=== PATIENT | female | born 1970 | race Caucasian/White ===

== ENCOUNTER 2023-05-20 05:47 | Emergency (ER) | payer BC ==
--- OUTSIDE RECORDS SUMMARY | 2023-05-20 05:49 | XMS REPORT | Continuity of Care Document ---
Author Name Unknown Address [address] [place] [address] 1 [address] [place], [place] [id number] [place] [address] thconnect Address [address] [place] [address] [address] [place] [address] Care Team Providers Care Door Puller Name Role Phone [email or web address] Attending Clinician Unavaila ble [email or web address] Admitting Clinician Unavaila ble Encounters Start Date/Time End Date/Time Encounter Type Admission Type Attending Clinicians Care Facility Care Department Encounter ID Source 2023-04-08 00:00:00 2023-04-08 00:00:00 Outpatient [email or web address] [facility] [id number] [facility]
[2023-05-20 06:44] LABS: Absolute Lymphocytes (CBC) 1.5 K/uL (0.7-4.9); Hematocrit 40.1 % (36.0-45.0); Lymphocytes % 26.5 % (15.3-44.8); MCV 88.1 fL (80-100); MPV 9.9 fL (7.6-11.3); Platelets 145 thou/uL (152-406); RBC Red Blood Cell Count 4.56 M/uL (3.86-4.86)
[2023-05-20 06:54] LABS: Albumin 3.4 g/dL (3.4-5.0); Bilirubin Direct 0.1 mg/dL (0-0.2); Bilirubin Indirect, Calculated 0.4 mg/dL (0.2-0.8); Bilirubin Total 0.5 mg/dL (0.2-1.0); Potassium 3.5 mEq/L (3.5-5.1); Protein, Total 7.5 g/dL (6.4-8.2); Troponin High Sensitivity 4.5 pg/mL (<58.9)
--- NOTE | 2023-05-20 07:32 | RAD REPORT ---
EXAM DESCRIPTION: CT - Angio Aorta For Dissection - 05/20/2023 7:09 am CLINICAL HISTORY: . Chest and abd pain COMPARISON: None TECHNIQUE: Computed tomography angiography of the chest, abdomen pelvis were obtained. 100 cc Isovue 370 was administered intravenously. Coronal and sagittal reconstruction were performed. MIP 3D reconstruction was performed All CT scans are performed using dose optimization technique as appropriate and may include automated exposure control or mA/KV adjustment according to patient size. FINDINGS: An aortic dissection is not seen. An aortic aneurysm is not displayed. The celiac, SMA and FERN are patent . A lung consolidation is not present. A pericardial effusion is not seen. A pleural effusion is not no delgado. Fatty liver. Small low-density area inferior right kidney extending to periphery There no evidence diverticulitis. Normal appendix. No adnexal mass IMPRESSION: Negative for an aortic dissection. Small low-density area right kidney may represent pyelonephritis
[2023-05-20 07:49] LABS: Thyroid Stimulating Hormone 1.26 uIU/mL (0.358-3.740)
--- NOTE | 2023-05-20 10:08 | EDPHYS ---
Physician Documentation [facility] Name: Erna Kumar Age: 52 yrs Sex: Female : 1970 Arrival Date: 05/20/2023 Time: 05:47 Bed 7 Private MD: ED Physician Kushal Sandhu HPI: 05/20 06:25 This 52 yrs old Female presents to ER via Ambulatory with complaints of Chest sp4 Tightness. 07:10 This 52 yrs old Female presents to ER via Ambulatory with complaints of Chest sp4 Tightness. 07:10 Patient is 52-year-old female with no significant past medical history presents with sp4 acute onset midsternal chest pain starting at 430 described as pressure with bilateral arm discomfort feeling of bilateral arm weakness, also feeling shortness of breath. Without cold sweats. Patient's pain at this time is 3 out of 10 on a scale. Patient states she exercises 3 times a day on a treadmill and does not get chest pains with physical exertion, patient smokes 7 cigarettes a day, not on any medications,. Historical: - Allergies: 06:03 PENICILLINS; jj7 - PMHx: 06:03 None; jj7 - PSHx: 06:03 BREAST LIFT; LIPOSUCTION; jj7 - Immunization history:: Adult Immunizations not up to date. - Social history:: Smoking status: Patient reports the use of cigarette tobacco products, Patient/guardian denies using alcohol, street drugs. - Family history:: not pertinent. - Hospitalizations: : No recent hospitalization is reported. ROS: 07:10 Constitutional: Negative for fever, chills, and weight loss, positive chest wall sp4 pain, positive chest pain positive bilateral arm discomfort 07:10 All other systems are negative, Exam: 07:10 Constitutional: This is a well developed, well nourished patient who is awake, alert, sp4 and in no acute distress. Head/Face: Normocephalic, atraumatic. Eyes: Pupils equal round and reactive to light, extra-ocular motions intact. Lids and lashes normal. Conjunctiva and sclera are not injected. Cornea within normal limits. Periorbital areas with no swelling, redness, or edema. ENT: Nares patent. No nasal discharge, no septal abnormalities noted. Tympanic membranes are normal and external auditory canals are clear. Oropharynx with no redness, swelling, or masses, exudates, or evidence of obstruction, uvula midline. Mucous membranes moist. Neck: Trachea midline, no thyromegaly or masses palpated, and no cervical lymphadenopathy. Supple, full range of motion without nuchal rigidity, or vertebral point tenderness. Chest/axilla: Normal chest wall appearance and motion. Nontender with no deformity. No lesions are appreciated. Cardiovascular: Regular rate and rhythm with a normal S1 and S2. No gallops, murmurs, or rubs. Normal PMI, no JVD. No pulse deficits. Respiratory: Lungs have equal breath sounds bilaterally, clear to auscultation and percussion. No rales, rhonchi or wheezes noted. No increased work of breathing, no retractions or nasal flaring. Abdomen/GI: Soft, non-tender, with normal bowel sounds. No distension or tympany. No guarding or rebound. No evidence of tenderness throughout. Back: No spinal tenderness. No costovertebral tenderness. Skin: Warm, dry with normal turgor. Normal color with no rashes, no lesions, and no evidence of cellulitis. MS/ Extremity: Pulses equal, no cyanosis. Neurovascular intact. Full, normal range of motion. Neuro: Awake and alert, GCS 15, oriented to person, place, time, and situation. Cranial nerves II-XII grossly intact. Motor strength 5/5 in all extremities. Sensory grossly intact. Psych: Awake, alert, with orientation to person, place and time. Behavior, mood, and affect are within normal limits 07:15 ECG was reviewed by the Attending Physician. EKG at 0 623 reveals normal sinus rhythm, sp4 no other significant findings and complete right bundle branch block Vital Signs: 06:01 BP 114 / 69; Pulse 74; Resp 16; Temp 97.9; Pulse Ox 98% ; Weight 78.02 kg; Height 5 ft. jj7 9 in. ; Pain 3/10; 08:19 BP 102 / 81; Pulse 65; Resp 18; Pulse Ox 97% on R/A; ld1 09:14 BP 100 / 70; Pulse 70; Resp 18; Pulse Ox 99% on R/A; ld1 06:01 Body Mass Index 25.40 (78.02 kg, 175.26 cm) [facility] 06:01 Pain Scale: Adult jj7 MDM: 06:25 Patient medically screened. sp4 07:10 ED course: Chest - CLINICAL HISTORY: The patient is 52 years old and is Female; CHEST sp4 PAIN TECHNIQUE: Frontal view of the chest. COMPARISON: No relevant prior studies available. FINDINGS: Lungs: Unremarkable. No consolidation. Pleural space: Unremarkable. No pneumothorax. Heart: Unremarkable. Mediastinum: Unremarkable. Normal mediastinal contour. Bones/joints: No acute findings. IMPRESSION: No acute findings in the chest. . 07:14 HEART Score: History: Moderately Suspicious (1), ECG: Normal (0), Age: > 45 and < 65 sp4 years (1), Risk Factors: No Risk Factors Known (0), Troponin: < or = 1 x Normal Limit (0), Total Score = 2. Data reviewed: vital signs, nurses notes, lab test result(s), EKG, radiologic studies, CT scan, plain films. Transition of care: After a detail discussion of the patient's case, care is transferred to Kushal Sandhu DO. ED course: Patient will get CT chest abdomen pelvis aortic protocol. At this time she is awaiting for chest CT. 07:42 Transition of care: Care assumed from Jeffry Gray MD. ms3 10:09 Independent interpretation of the following test(s) in the Emergency Department EKG: ms3 See my EKG interpretation above. Counseling: I had a detailed discussion with the patient and/or guardian regarding the historical points, exam findings, and any diagnostic results supporting the discharge/admit diagnosis, lab results, radiology results, the need for outpatient follow up, to return to the emergency department if symptoms worsen or persist or if there are any questions or concerns that arise at home. Special discussion: Based on the patient's history, exam, and Dx evaluation, there is no indication for emergent intervention or inpatient Tx. It is understood by the patient/guardian that if the Sx's persist or worsen they need to return immediately for re-evaluation. 05/20 06:14 Order name: Basic Metabolic Panel; Complete Time: 07:13 jb4 05/20 06:14 Order name: CBC with Diff; Complete Time: 07:13 jb4 12 06:14 Order name: Troponin HS; Complete Time: 07: jb4 05/20 06:25 Order name: LFT's sp4 05/20 06:29 Order name: Liver (Hepatic) Function; Complete Time: 07:13 EDND 05/20 07:13 Order name: TSH; Complete Time: 10: 4 05/20 07:13 Order name: T4 Free; Complete Time: 10: 4 05/20 06:14 Order name: XRAY Chest (1 view) [facility] 05/20 06:39 Order name: CT Aorta for Dissection; Complete Time: 10: [facility] 05/20 06:14 Order name: EKG; Complete Time: 06:14 [facility] 05/20 06:14 Order name: Cardiac monitoring; Complete Time: 06:20 [facility] 05/20 06:14 Order name: EKG - Nurse/Tech; Complete Time: 06:25 [facility] 05/20 06:14 Order name: IV Saline Lock; Complete Time: 06:21 [facility] 05/20 06:14 Order name: Labs collected and sent; Complete Time: 06:21 [facility] 05/20 06:14 Order name: O2 Per Protocol; Complete Time: 06:21 [facility] 05/20 06:14 Order name: O2 Sat Monitoring; Complete Time: 06:20 [facility] EC:15 Rate is 67 beats/min. Rhythm is regular, Normal Sinus Rhythm. QRS [place] is Normal. AR sp4 interval is normal. QRS interval is prolonged. QT interval is normal. No Q waves. T waves are Normal. No ST changes noted. Clinical impression: Normal ECG. Interpreted by me. Reviewed by me. Administered Medications: No medications were administered Disposition Summary: 05/20/23 10:07 Discharge Ordered Notes: Location: Home ms3 Condition: Stable ms3 Diagnosis - Chest pain, unspecified ms3 Followup: ms3 - With: Private Physician - When: 2 - 3 days - Reason: Recheck today's complaints Discharge Instructions: - Discharge Summary Sheet ms3 - Nonspecific Chest Pain, Adult ms3 Forms: - Medication Reconciliation Form ms3 - Thank You Letter ms3 - Antibiotic Education ms3 - Prescription Opioid Use ms3 - Patient Portal Instructions ms3 - Leadership Thank You Letter ms3 Signatures: Dispatcher [employer] Collin Werner RN RN jb4 Kushal Sandhu DO DO ms3 Jeff Engel RN RN jj7 Potepalov, Jeffry, MD MD sp4
--- NOTE | 2023-05-20 10:08 | ER ---
Nurse's Notes [facility] Name: Erna Kumar Age: 52 yrs Sex: Female : 1970 Arrival Date: 05/20/2023 Time: 05:47 Bed 7 Private MD: Diagnosis: Chest pain, unspecified Presentation: 05/20 06:01 Chief complaint: Patient states: WOKE UP HAVING CP AT 0430. ARMS FELT WEAK. NO LONGER jj7 HAVING PAIN BUT CHEST TIGHTNESS. Coronavirus screen: At this time, the client does not indicate any symptoms associated with coronavirus-19. Ebola Screen: No symptoms or risks identified at this time. Initial Sepsis Screen: Does the patient meet any 2 criteria? No. Patient's initial sepsis screen is negative. Does the patient have a suspected source of infection? No. Patient's initial sepsis screen is negative. Risk Assessment: Do you want to hurt yourself or someone else? Patient reports no desire to harm self or others. Onset of symptoms was May 20, 2023. 06:01 Method Of Arrival: Ambulatory [facility] 06:01 Acuity: ZULMA 3 jj7 Triage Assessment: 06:03 General: Appears in no apparent distress. uncomfortable, Behavior is calm, cooperative, jj7 appropriate for age. Pain: Denies pain. Cardiovascular: Reports CHEST TIGHTNESS. Historical: - Allergies: 06:03 PENICILLINS; jj7 - PMHx: 06:03 None; jj7 - PSHx: 06:03 BREAST LIFT; LIPOSUCTION; jj7 - Immunization history:: Adult Immunizations not up to date. - Social history:: Smoking status: Patient reports the use of cigarette tobacco products, Patient/guardian denies using alcohol, street drugs. - Family history:: not pertinent. - Hospitalizations: : No recent hospitalization is reported. Screenin:05 [facility] ED Fall Risk Assessment (Adult) History of falling in the last 3 months, jj7 including since admission No falls in past 3 months (0 pts). [facility] ED Fall Risk Assessment (Adult) Confusion or Disorientation No (0 pts) Intoxicated or Sedated No (0 pts) Impaired Gait No (0 pts) Mobility Assist Device Used No (0 pt) Altered Elimination No (0 pt) Score/Fall Risk Level 0 - 2 = Low Risk Oriented to surroundings, Maintained a safe environment, Educated pt \T\ family on fall prevention, incl call for assistance when getting out of bed. Abuse screen: Denies threats or abuse. Nutritional screening: No deficits noted. Tuberculosis screening: No symptoms or risk factors identified. Assessment: 06:05 Reassessment: SEE TRIAGE ASSESSMENT. Pain: Denies pain. Pain does not radiate. Pain jj7 began 3 hours ago. 07:00 Reassessment: No changes from previously documented assessment. Report received from ll1 special deputy sheriff RN. 08:43 Reassessment: No changes from previously documented assessment. Patient and/or family ll1 updated on plan of care and expected duration. Pain level reassessed. Patient is alert, oriented x 3, equal unlabored respirations, skin warm/dry/pink. 10:04 Reassessment: No changes from previously documented assessment. Patient and/or family ll1 updated on plan of care and expected duration. Pain level reassessed. Dr. Flowers at . Vital Signs: 06:01 BP 114 / 69; Pulse 74; Resp 16; Temp 97.9; Pulse Ox 98% ; Weight 78.02 kg; Height 5 ft. jj7 9 in. ; Pain 3/10; 08:19 BP 102 / 81; Pulse 65; Resp 18; Pulse Ox 97% on R/A; ld1 09:14 BP 100 / 70; Pulse 70; Resp 18; Pulse Ox 99% on R/A; ld1 06:01 Body Mass Index 25.40 (78.02 kg, 175.26 cm) jj7 06:01 Pain Scale: Adult jj7 ED Course: 05:51 Patient arrived in ED. gm2 06:03 Triage completed. jj7 06:03 Arm band placed on right wrist. Patient placed in an exam room, on a stretcher, on jj7 alarm security or surveillance monitor. 06:05 Patient has correct armband on for positive identification. Placed in gown. Bed in low jj7 position. Call light in reach. Adult w/ patient. Client placed on continuous cardiac and pulse oximetry monitoring. NIBP monitoring applied. monitor technician on. Pulse ox on. 06:21 Inserted saline lock: 18 gauge in right antecubital area, using aseptic technique. jj7 Blood collected. Patient maintains SpO2 saturation greater than 95% on room air. 06:25 Jeffry Gray MD is Attending Physician. sp4 06:31 XRAY Chest (1 view) In Process Unspecified. EDMS 07:10 Glenis Moreno, RN is Primary Nurse. ll1 07:11 CT Aorta for Dissection In Process Unspecified. EDMS 07:42 Attending Physician role handed off by Jeffry Gray MD ms3 07:42 Kushal Flowers DO is Attending Physician. ms3 10:12 No provider procedures requiring assistance completed. IV discontinued, intact, ld1 bleeding controlled, No redness/swelling at site. Administered Medications: No medications were administered Medication: 06:05 VIS not applicable for this client. jj7 Outcome: 10:07 Discharge ordered by MD. ms3 10:12 Discharged to home ambulatory, with family, ld1 10:12 Condition: stable 10:12 Discharge instructions given to patient, family, Instructed on discharge instructions, follow up and referral plans. Demonstrated understanding of instructions, follow-up care, 10:12 Patient left the ED. ld1 Signatures: Dispatcher [employer] [facility] Glenis Moreno RN RN ll1 Kushal Flowers DO DO ms3 Ángela Flowers RN RN ld1 Jeff Engel RN RN jj7 Jeffry Gray MD MD sp4 Ita Hines 2 Corrections: (The following items were deleted from the chart) 10:05 10:04 Reassessment: No changes from previously documented assessment. Patient and/or ll1 family updated on plan of care and expected duration. Pain level reassessed. ll1
[2023-05-20 11:13] VITALS: TEMP 97.9
[2023-05-20 11:25] VITALS: BP 100/70; O2SAT 99
--- NOTE | 2023-05-20 12:11 | RAD REPORT ---
EXAM DESCRIPTION: RAD - Chest Single View - 05/20/2023 6:30 am CLINICAL HISTORY: The patient is 52 years old and is Female; CHEST PAIN TECHNIQUE: Frontal view of the chest. COMPARISON: No relevant prior studies available. FINDINGS: Lungs: Unremarkable. No consolidation. Pleural space: Unremarkable. No pneumothorax. Heart: Unremarkable. Mediastinum: Unremarkable. Normal mediastinal contour. Bones/joints: No acute findings. IMPRESSION: No acute findings in the chest. Electronically signed by: Abran Maxwell MD 05/20/2023 06:36 AM PHOTOGRAPHIC EQUIPMENT INSPECTOR Due to temporary technical issues with the PACS/Fluency reporting system, reports are being signed by the in house radiologist without review as a courtesy to ensure prompt reporting. The interpreting r adiologist is fully responsible for the content of the report.
--- NOTE | 2023-05-20 13:03 | EKG ---
Test Date: 2023-05-20 Test Time: 06:23:16 Human Anatomy Teacher: SANTY MEASUREMENT RESULTS: Intervals: Rate: 67 MD: 144 QRSD: 114 QT: 426 QTc: 450 [place]: P: 49 MD: 144 QRS: 49 T: 49 INTERPRETIVE STATEMENTS: Normal sinus rhythm Incomplete right bundle branch block Borderline ECG No previous ECG available for comparison Electronically Signed On 05-20-23 13:02:50 WORKDAY SENIOR ASSOCIATE by Andrew Sterling
== END 2023-05-20 10:12 | disposition home or self-care (01) ==
LOC: ER 05:47
DX: R07.89 Other chest pain (principal); Z72.0 Tobacco use; Z88.0 Allergy status to penicillin
CPT/HCPCS: 93005; 85025; 80048; 36415; 80076; 84443; 84484; 84439; 71275; 74175; 71045; Q9967